=== PATIENT | female | born 1995 | race Caucasian/White ===

== ENCOUNTER 2016-11-22 04:13 | Emergency (ER) | payer OTHER ==
[~2016-11-22] VITALS: Ht 172.7 cm; Wt 50.0 kg
[~2016-11-22 04:13] MED LIST: IBUP-1542 PO; NITR-58 PO; PHEN-537 PO
[2016-11-22 04:24] VITALS: Ht 172.7 cm; Wt 50.0 kg
[2016-11-22 05:02] LABS: BASOPHIL # 0.1 10^3/ul (0.0-0.1); BASOPHILS % 0.6 % (0.0-2.0); EOSINOPHILS # 0.2 10^3/ul (0.0-0.5); EOSINOPHILS % 2.9 % (0.0-7.0); HEMOGLOBIN 14.6 g/dl (12.0-16.0); LYMPHOCYTES # 2.1 10^3/ul (0.8-2.9); LYMPHOCYTES % 24.8 % (15.0-51.0); MEAN CORPUSCULAR HEMOGLOBIN 31.2 pg (29.0-33.0); MEAN CORPUSCULAR VOLUME 91.9 fl (82.0-101.0); MEAN PLATELET VOLUME 11.2 fl (7.4-10.4); MONOCYTE # 0.7 10^3/ul (0.3-0.9); MONOCYTES % 8.4 % (0.0-11.0); NEUTROPHILS % 63.1 % (39.0-77.0); PLATELET COUNT 207 10^3/UL (140-415); RED BLOOD COUNT 4.68 10^6/ul (4.20-5.40); RED CELL DISTRIBUTION WIDTH 11.4 % (11.5-14.5); WHITE BLOOD COUNT 8.4 10^3/ul (4.8-10.8)
[2016-11-22 05:08] LABS: ADD UMIC NO; UR ASCORBIC ACID NEGATIVE (NEGATIVE); UR BILIRUBIN (Dip) NEGATIVE (NEGATIVE); UR BLOOD (Dip) NEGATIVE (NEGATIVE); UR CLARITY SLIGHTLY CLOUDY (CLEAR); UR COLOR YELLOW (YELLOW); UR GLUCOSE (Dip) NEGATIVE (NEGATIVE); UR KETONES (Dip) NEGATIVE (NEGATIVE); UR LEUKOCYTE ESTERASE (Dip) NEGATIVE Leu/ul (NEGATIVE); UR MUCUS MANY /HPF (NONE SEEN); UR NITRITE (Dip) NEGATIVE (NEGATIVE); UR RBC 1 /HPF (0-5); UR SPECIFIC GRAVITY (Dip) 1.028 (1.003-1.030); UR SQUAMOUS EPITHELIAL CELL MODERATE /HPF (FEW); UR TOTAL PROTEIN (Dip) NEGATIVE (NEGATIVE); UR UROBILINOGEN (Dip) NEGATIVE (NEGATIVE)
--- NOTE | 2016-11-22 05:15 | RADRPT ---
PROCEDURE: US Pelvis. CLINICAL INDICATION: Pelvic pain TECHNIQUE: Sonographic evaluation of the pelvis was performed utilizing a transabdominal technique . Images were reviewed on the high-resolution PACS workstation. The patient refused endovaginal im aging. COMPARISON: No prior studies are available for comparison. FINDINGS: The uterus is normal in size, echogenicity, and morphology, measuring approximately a 0.1 x 3.7 x 4. 9 cm. The uterus is anteverted in normal position. The endometrium is grossly thin and normal me asuring approximately 1.1 mm in diameter. Evaluation is somewhat limited due to lack of transvagin al imaging. The ovaries were not visualized. There are no adnexal masses. There is no significant free fluid i n the pelvis. IMPRESSION: 1. Unremarkable transabdominal ultrasound of the pelvis. RPTAT: HH .Esther Gaona MD, Date Time Electronically viewed and signed by .Esther Gaona MD, on 11/22/2016 05:15 .G/
[2016-11-22 05:27] LABS: ALBUMIN 4.3 g/dl (3.3-4.9); ALBUMIN/GLOBULIN RATIO 1.34; BILIRUBIN,INDIRECT 0.2 mg/dl (0-1.1); BILIRUBIN,TOTAL 0.2 mg/dl (0.2-1.3); CALCIUM 9.4 mg/dl (8.4-10.2); CREATININE 0.75 mg/dl (0.44-1.00); POTASSIUM 3.8 mmol/L (3.5-5.1); TOTAL PROTEIN 7.5 g/dl (6.1-8.1)
[2016-11-22] MEDS ORDERED: IBUP-1542 PO (05:34)
--- NOTE | 2016-11-22 05:34 | ERD ---
ER Documentation Chief Complaint Date/Time DATE: 11/22/16 TIME: 05:30 Chief Complaint rt side lower pelvic pain off/on since 10/14. on fertility medication HPI 21-year-old female presents here in emergency department for complaints of lower pelvic pain that started on and off for the last 2 months now, patient has been having pelvic pain cramping pain intermittent pain 4/10 scale, not better or worse with anything. Patient is currently taking fertility medication [id number]. Patient denies any fever or chills. Patient denies any nausea or vomiting. Patient is concerned if she is and wants to know if she is . Patient denies any hematuria or dysuria. Patient denies any fever or chills. Patient denies any nausea vomiting. ROS All systems reviewed and are negative except as per history of present illness. Medications Home Meds Active Scripts Ibuprofen* (Motrin*) 600 Mg Tab, 600 MG PO Q6H Y for PAIN AND OR ELEVATED TEMP, #30 TAB Prov:ANSHUL LÓPEZ NP 11/22/16 Ibuprofen* (Motrin*) 600 Mg Tab, 600 MG PO Q8H Y for PAIN, #14 TAB Prov:DIOGO NAJERA 10/18/14 Nitrofurantoin Monohyd Macrocr* (Macrobid*) 100 Mg Capsr, 100 MG PO BID, #14 CAP Prov:DIOGO NAJERA 10/18/14 Phenazopyridine Hcl* (Pyridium*) 100 Mg Tab, 100 MG PO TID, #6 TAB Prov:DIOGO NAJERA 10/18/14 Allergies Allergies: Coded Allergies: No Known Allergy (Unverified , 11/22/16) PMhx/Soc Medical and Surgical Hx: pt denies Medical Hx, pt denies Surgical Hx History of Surgery: No Anesthesia Reaction: No Hx Neurological Disorder: No Hx Respiratory Disorders: No Hx Cardiac Disorders: No Hx Psychiatric Problems: No Hx Miscellaneous Medical Probl: No Hx Alcohol Use: No Hx Substance Use: No Hx Tobacco Use: No Smoking Status: Never smoker FmHx Family History: No coronary disease, No diabetes, No other Physical Exam Vitals Vital Signs Date Time Temp Pulse Resp B/P Pulse Ox O2 Delivery O2 Flow Rate FiO2 11/22/16 04:24 98.5 71 18 106/65 99 Physical Exam GENERAL: The patient is well developed and appropriate for usual state of health, in no apparent distress. CHEST: Clear to auscultation bilaterally. There are no rales, wheezes or rhonchi. HEART: Regular rate and rhythm. No murmurs, clicks, rubs or gallops. No S3 or S4. ABDOMEN: Soft, nontender and nondistended. Good bowel sounds. No rebound or guarding. No gross peritonitis. No gross organomegaly or masses. No Minaya sign or McBurney point tenderness. BACK: No midline or flank tenderness. EXTREMITIES: Equal pulses bilaterally. There is no peripheral clubbing, cyanosis or edema. No focal swelling or erythema. Full range of motion. Grossly neurovascularly intact. NEURO: Alert and oriented. Cranial nerves 2-12 intact. Motor strength in all 4 extremities with 5/5 strength. Sensation grossly intact. Normal speech and gait. SKIN: There is no apparent rash or petechia. The skin is warm and dry. HEMATOLOGIC AND LYMPHATIC: There is no evidence of excessive bruising or lymphedema. No gross cervical, axillary, or inguinal lymphadenopathy. Result Diagram: 11/22/16 0450 11/22/16 0450 Results 24 hrs Laboratory Tests Test 11/22/16 04:30 11/22/16 04:50 Urine Color YELLOW Urine Clarity SLIGHTLY CLOUDY Urine pH 5.0 Urine Specific Seltzer 1.028 Urine Ketones NEGATIVEmg/dL Urine Nitrite NEGATIVEmg/dL Urine Bilirubin NEGATIVEmg/dL Urine Urobilinogen NEGATIVEmg/dL Urine Leukocyte Esterase NEGATIVELeu/ul Urine Microscopic RBC 1/HPF Urine Microscopic WBC 0/HPF Urine Squamous Epithelial Cells MODERATE/HPF Urine Mucus MANY/HPF Urine Hemoglobin NEGATIVEmg/dL Urine Glucose NEGATIVEmg/dL Urine Total Protein NEGATIVEmg/dl White Blood Count 8.410^3/ul Red Blood Count 4.6810^6/ul Hemoglobin 14.6g/dl Hematocrit 43.0% Mean Corpuscular Volume 91.9fl Mean Corpuscular Hemoglobin 31.2pg Mean Corpuscular Hemoglobin Concent 34.0g/dl Red Cell Distribution Width 11.4% Platelet Count 62891^3/UL Mean Platelet Volume 11.2fl Neutrophils % 63.1% Lymphocytes % 24.8% Monocytes % 8.4% Eosinophils % 2.9% Basophils % 0.6% Nucleated Red Blood Cells % 0.0/100WBC Neutrophils # (Manual) 5.310^3/ul Lymphocytes # 2.110^3/ul Monocytes # 0.710^3/ul Eosinophils # 0.210^3/ul Basophils # 0.110^3/ul Nucleated Red Blood Cells # 0.010^3/ul Sodium Level 141mmol/L Potassium Level 3.8mmol/L Chloride Level 106mmol/L Carbon Dioxide Level 28mmol/L Anion Gap 11 Blood Urea Nitrogen 13mg/dl Creatinine 0.75mg/dl Glucose Level 83mg/dl Calcium Level 9.4mg/dl Total Bilirubin 0.2mg/dl Direct Bilirubin 0.00mg/dl Indirect Bilirubin 0.2mg/dl Aspartate Amino Transf (AST/SGOT) 17IU/L Alanine Aminotransferase (ALT/SGPT) 21IU/L Alkaline Phosphatase 76IU/L Total Protein 7.5g/dl Albumin 4.3g/dl Globulin 3.20g/dl Albumin/Globulin Ratio 1.34 Lipase 214U/L Beta HCG, Quantitative < 2.4mIU/ml PROCEDURE: US Pelvis. CLINICAL INDICATION: Pelvic pain TECHNIQUE: Sonographic evaluation of the pelvis was performed utilizing a transabdominal technique. Images were reviewed on the high-resolution PACS workstation. The patient refused endovaginal imaging. COMPARISON: No prior studies are available for comparison. FINDINGS: The uterus is normal in size, echogenicity, and morphology, measuring approximately a 0.1 x 3.7 x 4.9 cm. The uterus is anteverted in normal position. The endometrium is grossly thin and normal measuring approximately 1.1 mm in diameter. Evaluation is somewhat limited due to lack of transvaginal imaging. The ovaries were not visualized. There are no adnexal masses. There is no significant free fluid in the pelvis. IMPRESSION: 1. Unremarkable transabdominal ultrasound of the pelvis. RPTAT: HH .Esther Gaona MD, Date Time Electronically viewed and signed by .Esther Gaona MD, MD on 11/22/2016 05 :15 .G/ CC: ANSHUL LÓPEZ NP Procedures/MDM Medical Decision Making: Intermittent pelvic pain nonspecific at this time, possible menstrual cramps, no tenderness in the right lower quadrant, low suspicion for appendicitis. No fever. No leukocytosis, no bandemia. Patient is not , negative beta hCG, negative test. There is low suspicion for abdominal emergencies at this time. Patients abdominal exam is normal at this time. Patients radiology exam does not show any abdominal emergencies at this time. There is low suspicion for appendicitis, cholecystitis , abdominal aortic aneurysms or peritonitis at this time. There is low suspicion for sepsis. Patient appears well and is hemodynamically stable. No s/ s of ectopic , or ovarian torsion Disposition: Home. Condition: Stable Prescription Ibuprofen Instructions: Patient is advised to take medications as prescribed. Patient is advised to rest, increase fluid intake and do see gyne specialist for next 1-2 days and progress as tolerated. Patient is advised that if symptoms are worse, severe abdominal pain, uncontrolled vomiting, high fever, severe flank pain, worst signs and symptoms, to return to the emergency department immediately. Otherwise, patient can follow up with primary care doctor in 5-7 days. Disclaimer: Inadvertent spelling and grammatical errors are likely due to EHR/ dictation software use and do not reflect on the overall quality of patient care. Also, please note that the electronic time recorded on this note does not necessarily reflect the actual time of the patient encounter. Departure Diagnosis: Primary Impression: Pelvic pain Condition: Stable Patient Instructions: Pelvic Pain, Unknown Cause Additional Instructions: Patient is advised to take medications as prescribed. Patient is advised to rest , increase fluid intake and do see gyne specialist for next 1-2 days and progress as tolerated. Patient is advised that if symptoms are worse, severe abdominal pain, uncontrolled vomiting, high fever, severe flank pain, worst signs and symptoms, to return to the emergency department immediately. Otherwise, patient can follow up with primary care doctor in 5-7 days. ANSHUL LÓPEZ NP Nov 22, 2016 05:34
[2016-11-22 05:57] VITALS: BP 108/65; PULSE 85; RESP 18; TEMP 98.6
== END 2016-11-22 05:48 | disposition home or self-care (01) ==
LOC: FTE 04:13
DX: R10.2 Pelvic and perineal pain (principal)
CPT/HCPCS: 36415; 76856; 80053; 81001; 83690; 84702; 85025; Z7502; 81003

== ENCOUNTER 2017-09-17 21:06 | Outpatient (CLI) | END 2017-09-18 02:23 | disposition home or self-care (01) ==

== ENCOUNTER 2017-11-24 18:34 | Outpatient (CLI) | END 2017-11-24 21:24 | disposition home or self-care (01) ==

== ENCOUNTER 2018-01-01 07:31 | Outpatient (CLI) | END 2018-01-01 10:12 | disposition left against medical advice (07) ==

== ENCOUNTER 2018-01-17 12:37 | Outpatient (CLI) | END 2018-01-17 18:30 | disposition home or self-care (01) ==

== ENCOUNTER 2018-01-26 06:30 | Inpatient (IN) | END 2018-01-29 12:35 | disposition home or self-care (01) | DRG 807 ==

== ENCOUNTER 2018-02-08 12:06 | Emergency (ER) | END 2018-02-08 14:18 | disposition home or self-care (01) ==

== ENCOUNTER 2018-05-16 17:45 | Emergency (ER) | payer OTHER ==
[~2018-05-16] VITALS: Wt 62.2 kg
[2018-05-16] MEDS ORDERED: METR500T PO (20:21)
[2018-05-16] MEDS ORDERED: FLUC150T PO (20:21)
--- NOTE | 2018-05-16 20:23 | ERD ---
ER Documentation Chief Complaint Chief Complaint burning, itching, 'cottage cheese' 'yellow, smelly' discharge x3d HPI 23-year-old female presents with burning and itching and vaginal discharge for the last 1-2 weeks. She complains of a foul smell. She denies any abdominal pain, dysuria, fevers. She is approximately 3 months . ROS All systems reviewed and are negative except as per history of present illness. Medications Home Meds Active Scripts Clindamycin Hcl* (Clindamycin Hcl*) 300 Mg Capsule, 300 MG PO TID for 7 Days, CAP Prov:SYED FIELD MD 05/16/18 Fluconazole* (Diflucan*) 150 Mg Tablet, 150 MG PO ONCE, #1 TAB Prov:SYED FIELD MD 05/16/18 Discontinued Scripts Metronidazole* (Flagyl*) 500 Mg Tablet, 500 MG PO BID for 7 Days, TAB Prov:SYED FIELD MD 05/16/18 Allergies Allergies: Coded Allergies: No Known Allergy (Unverified , 11/22/16) PMhx/Soc Medical and Surgical Hx: pt denies Medical Hx, pt denies Surgical Hx History of Surgery: No Anesthesia Reaction: No Hx Neurological Disorder: No Hx Respiratory Disorders: No Hx Cardiac Disorders: No Hx Psychiatric Problems: No Hx Miscellaneous Medical Probl: No Hx Alcohol Use: No Hx Substance Use: No Hx Tobacco Use: No Smoking Status: Never smoker FmHx Family History: No diabetes, No coronary disease, No other Physical Exam Vitals Vital Signs Date Temp Pulse Resp B/P (MAP) Pulse Ox O2 O2 Flow FiO2 Time Delivery Rate 05/16/18 98.5 90 22 135/77 96 18:03 (96) Physical Exam Const: No acute distress Head: Atraumatic Eyes: Normal Conjunctiva ENT: Normal External Ears, Nose and Mouth. Neck: Full range of motion. No meningismus. Resp: Clear to auscultation bilaterally Cardio: Regular rate and rhythm, no murmurs Abd: Soft, non tender, non distended. Normal bowel sounds. Pelvic exam with concession manager shows creamy whitish yellowish discharge. There is no cervical motion tenderness. There is some irritation at the introitus. No induration or streaking. No vesicles or open wounds. Skin: No petechiae or rashes Back: No midline or flank tenderness Ext: No cyanosis, or edema Neur: Awake and alert Psych: Normal Mood and Affect Results 24 hrs Laboratory Tests Test 05/16/18 19:38 05/16/18 19:39 Bedside Urine pH (LAB) 6.0 Bedside Urine Protein (LAB) Trace Bedside Urine Glucose (UA) Negative Bedside Urine Ketones (LAB) Negative Bedside Urine Blood Negative Bedside Urine Nitrite (LAB) Negative Bedside Urine Leukocyte Esterase (L Trace POC Beta HCG, Qualitative NEGATIVE Procedures/MDM Patient presents with nonspecific vaginitis symptoms consistent with bacterial vaginosis. Urine shows trace leukocytes, hCG is negative. Will treat empirically with clindamycin and Diflucan. Patient states that her "whole family is allergic to Flagyl "and declined Flagyl. Urine was sent for gonorrhea chlamydia. She has no signs or symptoms to suggest PID, tubo-ovarian abscess and we will await STD testing. She has no signs of abdominal pain or additional serious illness. Doubt UTI she has no dysuria and primary complaints are vaginal, and leukocytes likely from dirty catch. The patient was stable with no new complaints during the ER course. Clinically, there is no current evidence to suggest meningitis, sepsis, acute abdomen, pneumonia, stroke, acute coronary syndrome, pulmonary embolism, aortic dissection or any other emergent condition appearing to require further evaluation or hospitalization. Patient counseled regarding my diagnostic impression and care plan. Prior to discharge all questions answered. Pt agrees with treatment plan and understands strict return precautions. Pt is instructed to follow up with primary care provider within 24-48 hours. Precautionary instructions provided including instructions to return to the ER if not improving or for any worsening or changing symptoms or concerns. Departure Diagnosis: Primary Impression: Vaginitis Chronicity: acute Qualified Codes: N76.0 - Acute vaginitis Condition: Stable Patient Instructions: Vaginitis, Bacterial Additional Instructions: We will treat for yeast as well as bacterial vaginosis. Recheck for new or worsening symptoms with primary care doctor. STD testing should return within 1 week. Take probiotics as well. SYED FIELD MD May 16, 2018 20:23
[2018-05-16] MEDS ORDERED: CLIN300C10 PO (20:36)
[2018-05-16 20:39] VITALS: BP 112/61; PULSE 83; RESP 18
== END 2018-05-16 20:41 | disposition home or self-care (01) ==
LOC: FTE 17:45
DX: N76.0 Acute vaginitis (principal)
CPT/HCPCS: 81003; 81025; 87591; Z7502; 99284